=== PATIENT | female | born 1985 | race Caucasian/White ===

== ENCOUNTER 2016-06-20 11:51 | Day surgery (SDC) | payer OTHER ==
[~2016-06-20 11:51] MED LIST: BACL10TA PO; BUTA1CAP44 PO; DEXT10TA8 PO; FLUN25SP NS; KETO30CA8 IJ; NPR500T PO; PREG75CA PO; PROP10TA8 PO; SERT20OR6 PO; TOPI50TA32 PO
[2016-06-20] MEDS ORDERED: MethylprednisoLONE Depot 80 mg/mL Inj ONE (11:52)
[2016-06-20] MEDS ORDERED: Iohexol 240 mg/mL 10 mL Inj ONE (11:52)
[2016-06-20 13:05] VITALS: BP 137/84; PULSE 83; RESP 22; O2SAT 96
--- NOTE | 2016-06-20 16:46 | PCM.PROC ---
Procedure Note Date of Service: Jun 20, 2016 Pre Procedure Diagnosis: PROCEDURE: Cervical interlaminar epidural steroid injection. LEFT paramedian C6-C7 PRE-PROCEDURE DIAGNOSIS: Cervical radiculopathy POST-PROCEDURE DIAGNOSIS: same INDICATION: 30-year-old female with LEFT arm pain consistent with cervical radiculopathy PERFORMED BY: Clayton Marquez MD DESCRIPTION OF PROCEDURE: Patient was met in the holding area. Consent was signed, site was confirmed and all questions were answered. Patient was taken to the procedure suite and placed prone on the procedure table with neck in a flexed position. The appropriate time out in the OR was performed confirming the patient's name, date of , planned procedure, and presence of the appropriate instrumentation. The proper interspace was identified using fluoroscopic guidance. Local anesthesia with 1% lidocaine was used to anesthetize the skin and subcutaneous tissues. A 20-gauge Touhy epidural needle was advanced under tunnel view vision using direct fluoroscopic guidance towards the inferior lamina using a LEFT paramedian approach. A contralateral oblique view was used to gauge depth after the needle was walked off the lamina. After loss of resistance was obtained using a loss of resistance syringe, radiopaque contrast was injected under live fluoroscopic view which confirmed epidural placement as well as the absence of intravascular uptake. 80 mg Depo-Medrol was injected without difficulty. ANESTHESIA: Local. 1 mg Versed. 100 mcg fentanyl EBL: None. No Blood Products Used COMPLICATIONS: None SPECIMENS: None POST-PROCEDURE DISPOSITION: Patient was returned to the holding area in stable condition. They were discharged home when all discharge criteria were met. Evaluation/Physical Exam before discharge revealed: No Neurologic Change DISCHARGE MEDICATIONS: None FOLLOW UP: Followup with neurosurgery in 2-4 weeks Fluro time:See Radiology Record Clayton Marquez MD * Pain Management * Anesthesiology (Dictated using voice-recognition software) Clayton Marquez MD Jun 20, 2016 16:46
== END 2016-06-20 23:59 | disposition home or self-care (01) ==
LOC: END 11:51
PROVIDERS: ATTEND Anesthesiology Pain Medicine
DX: M54.12 Radiculopathy, cervical region (principal); M54.2 Cervicalgia; M79.7 Fibromyalgia; G43.009 Migraine without aura, not intractable, without status migrainosus; F90.9 Attention-deficit hyperactivity disorder, unspecified type
CPT/HCPCS: 62321; J1040